=== PATIENT | male | born 1980 | race Caucasian/White ===

== ENCOUNTER → 2024-05-03 15:34 | Outpatient (REF) | payer BC, SELFPAY | LOC: RAD 15:34 | PROVIDERS: ATTENDING PHYSICIAN Internal Medicine | DX: R10.30 Lower abdominal pain, unspecified (principal) | CPT/HCPCS: 74177; Q9967 ==

== ENCOUNTER → 2024-09-28 14:33 | Outpatient (REF) | payer BC, SELFPAY | LOC: RAD 14:33 | PROVIDERS: ATTENDING PHYSICIAN Nurse Practitioner Adult Health | DX: L81.9 Disorder of pigmentation, unspecified (principal); R60.0 Localized edema | CPT/HCPCS: 93970 ==

== ENCOUNTER → 2024-12-17 15:20 | Outpatient (REF) | payer BC, SELFPAY | LOC: HWRAD 15:20 | PROVIDERS: ATTENDING PHYSICIAN Internal Medicine | DX: R10.13 Epigastric pain (principal) | CPT/HCPCS: 76700 ==

== ENCOUNTER 2025-01-11 09:33 | Emergency (ER) | payer BC, SELFPAY ==
[2025-01-11 09:34] VITALS: BP 141/110
--- NOTE | 2025-01-11 10:08 | ED.GENMED ---
History of Present Illness
General
Chief Complaint: Abdominal Pain
Time Seen by Provider: 01/11/25 09:58
Nursing documentation reviewed up to this point in time: agreed with
History of Present Illness
History of Present Illness:
44-year-old male presents to the ER for evaluation of severe constipation. Patient states his last normal bowel movement was last Tuesday. He states that he does have occasional constipation but it is usually alleviated by [id number]
remedies. He started using Dulcolax and took an enema this morning without improvement prompting visit to the ER. He was feeling very nauseated but has not yet had emesis. He also reports difficulty urinating this morning-he feels he cannot empty
his bladder. He was voiding without difficulty yesterday. He denies any recent antibiotic usage. No prior surgical history. No recent travel. No fevers. Consider patient does have a prior history of diverticulitis but states that this is not
symptoms that he would correlate with his prior experience with diverticular disease
Review of Systems
Review of Systems
Allergies reviewed?: Yes
Phy Exam
Physical Exam
Physical Exam:
Patient is awake, alert, intermittently tearful, conjunctiva pink, mucous membranes moist, heart regular rate and rhythm without murmurs or ectopy, lungs are clear to auscultation without wheezes rales or rhonchi, abdomen is soft with palpable
distended bladder with localized tenderness on palpation in the suprapubic region, no masses, no guarding, extremities without edema, 2+ DP pulses present symmetric bilateral feet, GCS is 15
Sepsis
Sepsis Screening
Sepsis Assessment: Sepsis Ruled Out
Sepsis Screen
Sepsis Screen: Sepsis Ruled Out
Date: 01/11/25
Time: 15:57
Course
Orders/Labs/Results
Orders:
Orders
01/11/25 10:06
Bladder Scan- Treatment ONCE
0.9% Sodium Chloride 1000 ml [Nss] 1,000 ml IV BOLUS
Ondansetron Injectable [Zofran] 4 mg IV NOW STA
CR Obstruct Series W/pa Chest Urgent
Comment:
Reason For Exam: constipation
01/11/25 10:26
Complete Blood Count/No Diff Urgent
Comprehensive Metabolic Panel Urgent
01/11/25 10:42
Straight cath- Treatment ONCE
01/11/25 12:21
Enema- Treatment ONCE
Type: Soap Suds
01/11/25 13:32
Urinalysis Reflex To Culture Urgent
Date Specimen was Collected: 01/11/25
Time Specimen was Collected: 13:17
Urine Microscopic Reflex Cult Urgent
Urine Culture Urgent
ANASTASIYA Source: U
Specimen Description:
Date Specimen was Collected: 01/11/25
Time Specimen was Collected: 13:17
01/11/25 13:58
Enema- Treatment ONCE
Type: Milk of Molasses
01/11/25 15:05
Sulfamethox./Trimethoprim Ds [Bactrim Ds 800 mg/160 mg] 1 tablet PO NOW STA
Abnormal Lab Results
01/11/25 01/11/25
10:26 13:32
Sodium 133 L mmol/L
(135-145)
Glucose 112 H mg/dl
(70-99)
Albumin 5.1 H g/dl
(3.5-5.0)
Urine Ketones 3+ A
(Negative)
Ur Occult Blood Reflex 1+ A
(Negative)
Leukocyte Esterase Rfl 2+ A
(Negative)
Urine WBC (Reflex) 21-25 A /HPF
(0-5)
Urine Bacteria (Reflex) Few A
(Negative)
01/11/25 10:26
01/11/25 10:26
Vital Signs
Initial and Last Documented VS:
Initial Vital Signs
Temp Pulse Resp BP Pulse Ox
97.8 F 140 22 141/110 98
01/11/25 09:34 01/11/25 09:34 01/11/25 09:34 01/11/25 09:34 01/11/25 09:34
Last Documented Vital Signs
Temp Pulse Resp BP Pulse Ox
97.8 F 140 22 141/110 98
01/11/25 09:34 01/11/25 09:34 01/11/25 09:34 01/11/25 09:34 01/11/25 10:09
MDM/Problems Addressed
Differential Diagnosis Includes:
Differential diagnosis to consider but not limited to urinary tract infection, acute urinary outlet obstruction, constipation, bowel obstruction, along with other etiology
*Radiology
Radiology exam reviewed: preliminary read by ED provider (I independently viewed and interpreted obstruction series showing large amount of feces in the rectum and throughout colon, nonobstructive pattern, chest x-ray clear. I reviewed radiology
interpretation also which is in)
*Pulse Oximetry
SaO2: 98
Oxygen Mode of Delivery: Room air
Patient hypoxic: no
*Critical Care Note
Total Time (30-74mins, 75-104mins- exclusive of procedures): Not Applicable
Update Note
Update Note:
Bedside bladder scan shows greater than 1 L of urine in the bladder. Will do straight cath, address constipation and then do trial of voiding
1406: Straight cath urine drained more than a liter of urine with significant improvement in his discomfort patient was given soapsuds enema without any stool output. Will give milk and molasses enema and reassess
1504-patient was able to have a large bowel movement after milk of molasses enema. He is also voided several times since the second enema. Urinalysis is concerning for infection-patient reports that it may have been a contaminated sample. However
given abrupt onset of the acute urinary retention will treat presumptively. White blood count is reassuring. Will place patient on Bactrim. We discussed at length bowel regimen in order to prevent future constipation. Patient expressed
understanding of strict return precautions and has no questions at the current
ED Attending Note
-
Portions of this chart may have been created with voice recognition software.� Occasional wrong word or��sound alike� substitutions may have occurred due to the inherent limitations of voice recognition software.
Discharge Plan
Departure
Patient Disposition: Home (Routine Discharge)
Date of Disposition: 01/11/25
Time of Disposition: 15:05
Patient with high blood pressure during this ER visit?: Yes
Discharge Problem:
Constipation, Acute urinary retention
Instructions: Urinary tract infection (DC), Constipation in adults - ED (DC)
Prescriptions:
New
sulfamethoxazole-trimethoprim [Bactrim DS] 800-160 mg tablet
1 tab PO Q12H Qty: 14 0RF
Referrals:
Quincy Plunkett MD [Active, Gastroenterology]
Benny White DO [Family Provider, Internal Medicine]
Activity Restrictions/Additional Instructions:
Please use Colace as available [id number] daily to help keep your stools soft and easy to pass. Please also use either MiraLAX or Metamucil daily in order to keep his stools fluffy and easy to pass. If you start to experience diarrhea,
please use MiraLAX or Metamucil every other day.. Please contact gastroenterology office to schedule appointment for reevaluation and further care as you may benefit from colonoscopy given change in bowel habits.
Interventions
Interventions:
*Risk Screen - Suicide Last Done: 01/11/25 09:34
*General Assessment Last Done: 01/11/25 15:29
*Neglect/Abuse Screening Last Done: 01/11/25 09:34
*ED- Fall Risk Assessment Last Done: 01/11/25 15:29
*ED COVID-19 Vaccine History Last Done: 01/11/25 09:34
*Nursing Disposition Last Done: 01/11/25 15:29
JP-Aqqovz-Tehubpvpnu Assessment Last Done: 01/11/25 11:21
Discharge Date and Time
Discharge Date/Time: 01/11/25 15:53
Print Language: BELIZEAN
[2025-01-11 10:36] LABS: Hematocrit 44.4 % (39.0-52.0); Hemoglobin 15.7 g/dL (13.0-18.0); Mean Corp Hgb Conc. 35.4 g/dL (33.0-37.0); Mean Corpuscular Volume 81.8 fL (80.0-94.0); Platelet Count 256 10^3/uL (130-400); Red Cell Dist. Width 12.7 % (11.5-14.5)
[2025-01-11] MEDS: NSS 1000 IV (10:39)
[2025-01-11] MEDS: ZOFRAN 4 MG IV (10:39)
[2025-01-11 10:50] LABS: ALT (SGPT) 34 U/L (0-50); AST (SGOT) 32 U/L (17-59); Albumin 5.1 g/dl (3.5-5.0); Alkaline Phosphatase 59 U/L (38-126); Blood Urea Nitrogen 17 mg/dl (9-20); Calcium 9.8 mg/dl (8.4-10.2); Carbon Dioxide 22 mmol/L (22-30); Chloride 102 mmol/L (98-107); Glucose 112 mg/dl (70-99); Potassium 4.2 mmol/L (3.5-5.1); Sodium 133 mmol/L (135-145); Total Protein 7.1 g/dl (6.3-8.2); eGFR > 60.00
[2025-01-11 13:47] LABS: Urine Character Clear (Clear)
[2025-01-11 13:59] LABS: Urine Red Blood Cell 0-2 /HPF (0-2); Urine Squamous Cell 0-2 /LPF (Few); Urine White Cell 21-25 /HPF (0-5)
[2025-01-11] MEDS: BACTRIM DS 800 MG/160 MG 1 TABLET PO (15:52)
== END 2025-01-11 15:53 | disposition home or self-care (01) ==
LOC: EMR 09:33
PROVIDERS: EMERGENCY PHYSICIAN Emergency Medicine; FAMILY PHYSICIAN Internal Medicine
DX: K59.00 Constipation, unspecified (principal); R33.9 Retention of urine, unspecified; R03.0 Elevated blood-pressure reading, without diagnosis of hypertension
CPT/HCPCS: 99284; 96374; 96361; 51798; 51701; 74022; 80053; 81003; 81015; 85027; 87086